=== PATIENT | female | born 1955 | race Hispanic/Latino ===

== ENCOUNTER → 2019-04-03 | Outpatient (CLI) | payer MEDICARE ==
--- NOTE | 2019-04-03 15:19 | Diagnostic Imaging Report ---
EXAMINATION: CT of the abdomen and pelvis without contrast. TECHNIQUE: Spiral CT images of the abdomen and pelvis were performed from the lung bases to the lesser trochanters. No intravenous contrast was given per renal stone protocol. Coronal and sagittal reformatted images were obtained. COMPARISON: None. CLINICAL HISTORY:Left flank pain, hematuria DISCUSSION: ABSENCE OF INTRAVENOUS CONTRAST DECREASES SENSITIVITY FOR DETECTION OF FOCAL LESIONS AND VASCULAR PATHOLOGY. ABDOMEN/PELVIS: LOWER THORAX: Unremarkable. HEPATOBILIARY:No focal hepatic lesion or intrahepatic biliary ductal dilatation. No definite radiopaque calculi or pericholecystic inflammation. SPLEEN: No splenomegaly. PANCREAS: No focal masses or ductal dilatation. ADRENALS: No adrenal nodules. KIDNEYS/URETERS: Bilateral nonspecific perinephric fat stranding. No focal renal mass lesion. 1.9 cm low-attenuation lesion anteriorly in the left kidney has average internal attenuation 0-10 Hounsfield units and likely represents a cyst though is incompletely characterized in the absence of intravenous contrast.. No renal, ureteral, or bladder calculi PELVIC ORGANS/BLADDER: Urinary bladder is unremarkable. Uterus is not identified and has presumably been removed. No adnexal mass. PERITONEUM/RETROPERITONEUM: No ascites. No pneumoperitoneum. LYMPH NODES: No pelvic sidewall, retroperitoneal, or mesenteric lymphadenopathy. VESSELS: Limited evaluation without intravenous contrast. The abdominal aorta is nonaneurysmal with atherosclerotic calcifications. GI TRACT: The large bowel shows no distention or wall thickening. Diverticula scattered along the descending and sigmoid colon without wall thickening or adjacent inflammatory change. The appendix is normal. No small bowel dilatation to suggest obstruction. BONES AND SOFT TISSUES: No osseous destructive lesions. Degenerative changes of the hips, sacroiliac joints, and lumbar spine. Small fat-containing umbilical hernia. No additional focal soft tissue abnormalities. IMPRESSION: No acute intra-abdominal or pelvic CT abnormalities. No urolithiasis per clinical query. Large bowel diverticulosis without evidence of diverticulitis. Atherosclerotic vascular disease. Signed by: Dr. Rowdy Lau M.D. on 04/03/2019 3:16 PM
== END ==
LOC: CT 14:03
PROVIDERS: ATTEND Family Medicine
DX: R10.9 Unspecified abdominal pain (principal); R31.9 Hematuria, unspecified; R11.2 Nausea with vomiting, unspecified; N28.1 Cyst of kidney, acquired
CPT/HCPCS: 74176

== ENCOUNTER → 2021-12-14 | Outpatient (CLI) | payer MEDICARE | LOC: MAMMO 12:21 | PROVIDERS: ATTEND Family Medicine | DX: Z12.31 Encounter for screening mammogram for malignant neoplasm of breast (principal); M85.88 Other specified disorders of bone density and structure, other site | CPT/HCPCS: 77067; 77080 ==

== ENCOUNTER → 2022-04-15 | Outpatient (CLI) | payer MEDICARE | LOC: RAD 10:37 | PROVIDERS: ATTEND Family Medicine | DX: M79.605 Pain in left leg (principal); M79.604 Pain in right leg; R25.2 Cramp and spasm; Z86.711 Personal history of pulmonary embolism | CPT/HCPCS: 93970 ==

== ENCOUNTER → 2023-10-25 | Outpatient (REF) | payer MEDICARE | LOC: MAMMO 13:11 | PROVIDERS: ATTEND Family Medicine | DX: Z12.31 Encounter for screening mammogram for malignant neoplasm of breast (principal) | CPT/HCPCS: 77067 ==

== ENCOUNTER → 2025-05-30 | Outpatient (REF) | payer MEDICARE | LOC: MAMMO 14:07 | PROVIDERS: ATTEND Family Medicine | DX: Z12.31 Encounter for screening mammogram for malignant neoplasm of breast (principal) | CPT/HCPCS: 77067 ==